=== PATIENT | female | born 1940 | race Caucasian/White ===

== ENCOUNTER → 2019-10-12 | Outpatient (CLI) | payer MEDICARE ==
[2019-10-12 10:00] LABS: CREATININE 0.83 mg/dL (0.55-1.02); FREE T4 (FREE THYROXINE) 0.74 ng/dL (0.76-1.46)
== END | disposition home or self-care (01) ==
LOC: LAB 09:17
PROVIDERS: ATTEND Physician Assistant Surgical
DX: D44.3 Neoplasm of uncertain behavior of pituitary gland (principal)
CPT/HCPCS: 36415; 82024; 82565; 82672; 83001; 83002; 84146; 84305; 84439; 84443; 84520

== ENCOUNTER 2020-04-06 08:06 | Outpatient (CLI) | payer MEDICARE | END 2020-04-06 23:59 | disposition home or self-care (01) | LOC: ROC 08:06 | PROVIDERS: ATTEND Radiology Radiation Oncology | DX: Z08 Encounter for follow-up examination after completed treatment for malignant neoplasm (principal); D35.2 Benign neoplasm of pituitary gland | CPT/HCPCS: G0463 ==